=== PATIENT | female | born 1975 | race African-American/Black ===

== ENCOUNTER 2022-05-05 10:57 | Outpatient (CLI) | payer OTHER, SELFPAY ==
--- NOTE | ~2022-05-05 | MM_ITS ---
EXAMINATION: MM screening [facility] BI [facility] HISTORY: Screening mammogram TECHNIQUE: Craniocaudal and mediolateral oblique 3-D tomosynthesis images were obtained and synthetic 2-D images were generated. CAD analysis was submitted and interpreted. COMPARISON: No prior mammogram is available for comparison at this institution. BREAST PARENCHYMAL COMPOSITION: There are scattered areas of fibroglandular density. FINDINGS: RIGHT BREAST: There is focal asymmetry in the middle and posterior third of the lower inner breast. LEFT BREAST: There is focal asymmetry in the posterior third of the upper-outer quadrant of the breas ts. IMPRESSION: 1. There is a focal asymmetry in the breasts which may represent the patient's baseline however no co mparison is currently available. 2. Comparison with prior mammograms is necessary. BI-RADS Category 0: Incomplete: Needs comparison with prior mammograms. Reviewed, dictated and finalized at location A. IMPRESSION: 1. There is a focal asymmetry in the breasts which may represent the patient's baseline however no comparison is currently available. 2. Comparison with prior mammograms is necessary. BI-RADS Category 0: Incomplete: Needs comparison with prior mammograms.
== END 2022-05-05 10:58 | disposition home or self-care (01) ==
LOC: ANHIMG 11:03
PROVIDERS: PCP Internal Medicine; Visit Provider Nurse Practitioner
DX: Z12.31 Encounter for screening mammogram for malignant neoplasm of breast (principal)
CPT/HCPCS: 77063; 77067

== ENCOUNTER 2023-04-29 09:36 | Outpatient (CLI) | payer OTHER, SELFPAY ==
--- NOTE | ~2023-04-29 | XR_ITS ---
EXAMINATION: XR lumbar spine 2-3V DATE: 04/29/2023 10:05 INDICATION: Back pain TECHNIQUE: Anteroposterior and lateral views of the lumbar spine, and cone-down lateral view of the l umbosacral junction were obtained. COMPARISON: None. FINDINGS: Bone alignment is normal. There is no fracture. The vertebral body heights are maintained. There is mild loss of intervertebral disc space height at L4-5 and L5-S1. Small degenerative osteophy arturo project from the anterior endplates of multiple vertebral bodies. There is multilevel mild facet joint osteoarthritis. Scattered abdominal and pelvic calcifications are noted, likely phleboliths. A moderate volume of colonic stool is present. There are no dilated loops of bowel. 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 IMPRESSION: 1. Mild lumbar spondylosis without acute findings. Reviewed, dictated and finalized at location F.
== END 2023-04-29 09:37 | disposition home or self-care (01) ==
PROVIDERS: PCP Internal Medicine; Visit Provider Internal Medicine
DX: M43.06 Spondylolysis, lumbar region (principal)
CPT/HCPCS: 72100

== ENCOUNTER 2023-06-01 03:41 | Day surgery (SDC) | payer OTHER, SELFPAY ==
[2023-05-18 14:15] VITALS: BMI 36.7
--- NOTE | 2023-05-30 09:25 | SUR.PREOP ---
Patient called regarding upcoming procedure. Reviewed preop instructions, appointment times, and procedure prep.
[2023-06-01 10:50] VITALS: BP 115/84; PULSE 90; RESP 18; TEMP 36.3; O2SAT 99; BMI 36.2
--- NOTE | 2023-06-01 10:52 | SUR.PREOP ---
Patient has had a tubal ligation. Urine test not obtained.
[2023-06-01] MEDS: LACTATED RINGERS 1,000 ML 150 ML IV CONT (10:58)
--- NOTE | 2023-06-01 11:13 | P.PNAN_ITS ---
Anes - Initial Pre Proc Eval Procedure: Operation Date: 06/01/23 13:00 Proposed Procedures p Screening Colonoscopy - Doug Barron MD Date/Time: 06/01/23 11:13 Surgeon: Doug Barron MD Pre Op Diagnosis: neoplasm screening Patient Data Age: 47 Gender: F Height: 1.63 m Weight: 95.7 kg Last Vital Signs Temp 36.3 C L 06/01/23 10:50 Pulse 90 06/01/23 10:50 Resp 18 06/01/23 10:50 BP 115/84 06/01/23 10:50 Pulse Ox 99 06/01/23 10:50 O2 Del Method Room Air 06/01/23 10:50 Allergies Allergy/AdvReac Type Severity Reaction Status Date / Time iodine Allergy Anaphylaxis Verified 06/01/23 10:49 shellfish derived Allergy Anaphylaxis Verified 06/01/23 10:49 Home Medications Medication Instructions Recorded Confirmed Type famotidine 20 mg tablet 10 mg PO DAILY 05/18/23 06/01/23 History ibuprofen 600 mg tablet 600 mg PO BID PRN Pain 05/18/23 06/01/23 History multivitamin 1 tablet PO DAILY 05/18/23 06/01/23 History Patient hx anesthesia problems: none Family hx anesthesia problems: none Results Review: All pre-operative results and documents have been reviewed as part of the pre- operative evaluation. [facility] Past Medical History Medical History (Updated 06/01/23 @ 11:13 by Rober Pablo MD) Obesity Surgical History Surgical History (Updated 06/01/23 @ 11:13 by Rober Pablo MD) History of endometrial ablation Social History Social History (System 07/20/22 @ 12:29 by Pedro Luis Merritt) Smoking status: Never smoker Substance use type: does not use Living arrangements: with family Anes - Eval Final PreProcedure Day of Procedure 06/01/23 11:13 Patient weight: obese Heart: regular rate and rhythm Lungs: clear to auscultation Airway: Mallampati scale class II Neurological: alert and oriented Last oral intake: >/= 8 hours ASA classification: II Emergent: no Anesthetic plan: proceed Anesthesia type and monitoring: general GIVS and standard monitoring Results Review: All pre-operative results and documents have been reviewed as part of the pre- operative evaluation. Informed Consent: The patient's anesthetic plan and its attendant risks and benefits were discussed with the patient/family/POA. Questions were solicited and answers provided to the satisfaction of the patient/family/POA.
--- NOTE | 2023-06-01 11:32 | PM.HPGS ---
History of Present Illness History of Present Illness Consent: Risks, benefits, and alternatives have been discussed and questions answered. Patient agrees to proceed with procedure. Chief complaint: neoplasm screening Narrative: Edilia Torrez is a 47 year old female here for first screening colonoscopy Review of Systems Constitutional: Constitutional: Denies headache(s) and Denies weakness Eyes: Eyes: Denies blurry vision ENT: Reports Normal hearing present, Denies headache(s) and Denies neck pain Cardiovascular: Cardiovascular: Denies chest pain and Denies dyspnea Respiratory: Respiratory: Denies dyspnea Gastrointestinal: Gastrointestinal: Reports no additional gastrointestinal complaints Genitourinary: Genitourinary: Denies dysuria Musculoskeletal: Musculoskeletal: Denies neck pain Integumentary/Breasts: Skin/Breast: Denies dry skin Neurologic: Reports Normal hearing present, Denies headache(s) and Denies weakness Psychiatric: Psychiatric: Denies anxiety Endocrine: Endocrine: Denies change in body appearance Hematologic/Lymphatic: Hematologic/Lymphatic: Denies easy bleeding Allergic/Immunologic: Allergic/Immunologic: Denies urticaria [facility] Past Medical History Medical History (Updated 06/01/23 @ 11:33 by Doug Barron MD) Colon cancer screening Obesity Surgical History Surgical History (Updated 06/01/23 @ 11:13 by Rober Pablo MD) History of endometrial ablation Social History Social History (System 07/20/22 @ 12:29 by Pedro Luis Merritt) Smoking status: Never smoker Substance use type: does not use Living arrangements: with family Meds Home Medications and Allergies Home Medications Medication Instructions Recorded Confirmed Type famotidine 20 mg tablet 10 mg PO DAILY 05/18/23 06/01/23 History ibuprofen 600 mg tablet 600 mg PO BID PRN Pain 05/18/23 06/01/23 History multivitamin 1 tablet PO DAILY 05/18/23 06/01/23 History Allergies Allergy/AdvReac Type Severity Reaction Status Date / Time iodine Allergy Anaphylaxis Verified 06/01/23 10:49 shellfish derived Allergy Anaphylaxis Verified 06/01/23 10:49 Vital Signs Vital Signs - 24 hr 06/01/23 10:50 Temperature 97.4 F L Pulse Rate 90 Respiratory Rate 18 Blood Pressure 115/84 Pulse Oximetry 99 Oxygen Delivery Room Air Exam Const: General: comfortable and no acute distress HENMT: Face/Nose/Sinus: Normal nares present Eyes: General: appearance normal, both eyes and all related structures Neck: Neck: no JVD Resp: Auscultation: clear to auscultation bilaterally Cardio: Rate: regular rate Rhythm: regular rhythm GI: Inspection: non-distended GI Palp: Yes Soft to palpation Skin: General skin exam: normal color Neuro: General: gait normal Speech: normal speech Extrem: General: normal to inspection Psych: Mental Status: mental status grossly normal Assessment and Plan Assessment and plan (1) Colon cancer screening: Code(s): Z12.11 - Encounter for screening for malignant neoplasm of colon Status: Acute Assessment and Plan: colonoscopy
[2023-06-01 12:19] VITALS: BP 121/83; PULSE 82; RESP 24; O2SAT 99
[2023-06-01 12:29] VITALS: BP 117/81; PULSE 81; RESP 16; O2SAT 100
[2023-06-01 12:39] VITALS: BP 124/78; PULSE 78; RESP 16; O2SAT 100
== END 2023-06-01 12:50 | disposition home or self-care (01) ==
PROVIDERS: PCP Internal Medicine; Visit Provider Internal Medicine Gastroenterology
PROC: 0DJD8ZZ Inspection of Lower Intestinal Tract, Via Natural or Artificial Opening Endoscopic (ICD-10-PCS; CPT 45378; principal; 2023-06-01 13:00)
DX: Z12.11 Encounter for screening for malignant neoplasm of colon (principal); D12.5 Benign neoplasm of sigmoid colon; E66.9 Obesity, unspecified; Z68.36 Body mass index [BMI] 36.0-36.9, adult
CPT/HCPCS: 45385; 88305; J2704; J7120

== ENCOUNTER 2023-09-14 07:49 | Outpatient (CLI) | payer SELFPAY ==
--- NOTE | ~2023-09-14 | MM_ITS ---
EXAMINATION: MM screening [facility] BI [facility] HISTORY: Screening mammogram TECHNIQUE: Craniocaudal and mediolateral oblique 3-D tomosynthesis images were obtained and synthetic 2-D images were generated. CAD analysis was submitted and interpreted. COMPARISON: 05/05/2022, 05/30/2017 bilateral screening mammogram examinations BREAST PARENCHYMAL COMPOSITION: There are scattered areas of fibroglandular density. FINDINGS: There is no evidence of suspicious mass, calcification, or architectural distortion to sugg est malignancy in either breast. There has been no suspicious interval change. IMPRESSION: 1. No mammographic evidence of malignancy. 2. Recommend routine screening mammography in one year. BI-RADS Category 1: Negative Reviewed, dictated and finalized at location A. ULATOR OPERATOR
== END 2023-09-14 07:50 | disposition home or self-care (01) ==
LOC: ANHIMG 07:51
PROVIDERS: PCP Internal Medicine; Visit Provider Nurse Practitioner
DX: Z12.31 Encounter for screening mammogram for malignant neoplasm of breast (principal)
CPT/HCPCS: 77063; 77067